=== PATIENT | female | born 2005 ===

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

== ENCOUNTER → 2024-05-11 | Outpatient (CLI) | payer OTHER ==
[2024-05-13 09:07] LABS: HEPATITIS B SURFACE ANTIGEN Negative (Negative)
[2024-05-13 09:31] LABS: HEPATITIS B SURFACE ANTIBODY 3.42 IU/L
[2024-05-13 12:52] LABS: HIV 1,2 COMBO ANTIGEN/ANTIBODY Negative (Negative)
[2024-05-14 05:15] LABS: HCV QNT BY NAAT (IU/ML) Not Detected; HCV QNT BY NAAT (LOG IU/ML) Not Detected; HCV QNT BY NAAT INTERP Not Detected (Not Detected)
== END ==
LOC: LAB SHORT 13:22 → LAB 13:22
PROVIDERS: Chiropractor
DX: Z20.9 Contact with and (suspected) exposure to unspecified communicable disease (principal)
CPT/HCPCS: 84460; 87340; 87389; 87522